=== PATIENT | male | born 1975 | race Two or more races ===

== ENCOUNTER 2017-08-19 22:14 | Emergency (ER) | payer OTHER ==
[~2017-08-19] VITALS: Ht 177.8 cm; Wt 101.6 kg
[~2017-08-19 22:14] MED LIST: CELE100C PO
[2017-08-19 22:15] VITALS: BP 117/71
[2017-08-19] MEDS ORDERED: FLUORESCEIN 1MG EYE STRIP. ONE (22:39)
[2017-08-19] MEDS ORDERED: prednisoLONE ACETATE 1% OPHTH SUSPENSION 5ML BOTTLE. ONE (22:58)
[2017-08-19] MEDS ORDERED: IBUPROFEN 800 MG TABLET. PO ONE (23:00)
[2017-08-19] MEDS ORDERED: diphenhydrAMINE HCL 25 MG CAPSULE PO ONE (23:00)
[2017-08-19] MEDS ORDERED: HYDROcodone/APAP 5/325MG 1 TAB TABLET PO ONE (23:00)
[2017-08-19] MEDS ORDERED: TETRACAINE 0.5% OPHTH SOLUTION 4ML BOTTLE. OU ONE (23:00)
[2017-08-19] MEDS ORDERED: HYDR-971 PO (23:06)
--- NOTE | 2017-08-19 23:06 | PHYS DOC ---
Past History Past Medical History: No Pertinent History Past Surgical History: No Surgical History Smoking: Non-smoker Alcohol Use: None Drug Use: None Adult General Chief Complaint Chief Complaint: EYE PROBLEMS HPI HPI Patient is a 41-year-old male presenting to the emergency department for evaluation of bilateral eye pain redness and tearing with slight blurriness that started yesterday. He says that he was outside for approximately 30 minutes and started developing severe pain in his eyes and it has progressed over the past day. He does not wear contact lenses or any corrective lenses. He denies having any medical problems and the only medication he takes is Celebrex. No fevers chills nausea vomiting or other systemic symptoms. Review of Systems Review of Systems Constitutional: Denies fever or chills [] Eyes: + change in visual acuity, redness, eye pain [] HENT: Positive rhinorrhea Integument: Erythematous rash to the bridge of his nose and his maxillary area All other systems were reviewed and found to be within normal limits, except as documented in this note. Current Medications Current Medications Current Medications Medications (Trade) Dose Ordered Sig/Tiny Start Time Stop Time Status Last Admin Dose Admin Acetaminophen/ Hydrocodone Bitart (Lortab 5/325) 2 tab 1X ONCE 08/19/17 23:00 08/19/17 23:01 DC 08/19/17 22:53 2 TAB Diphenhydramine HCl (Benadryl) 50 mg 1X ONCE 08/19/17 23:00 08/19/17 23:01 DC 08/19/17 22:54 50 MG Fluorescein Sodium (Ful-Tierney 1mg) 1 strip STK-MED ONCE 08/19/17 22:39 08/19/17 22:40 DC Ibuprofen (Motrin) 800 mg 1X ONCE 08/19/17 23:00 08/19/17 23:01 DC 08/19/17 22:53 800 MG Prednisolone Acetate (Pred Forte) 50 drop STK-MED ONCE 08/19/17 22:58 08/19/17 22:59 DC Tetracaine HCl (Tetracaine) 2 drop 1X ONCE 08/19/17 23:00 08/19/17 23:01 DC 08/19/17 22:46 2 DROP Allergies Allergies Allergies Coded Allergies Type Severity Reaction Last Updated Verified Iodinated Contrast Media - IV Dye Allergy Intermediate 02/27/15 Yes Physical Exam Physical Exam Constitutional: Well developed, well nourished, no acute distress, non-toxic appearance. [] HENT: Rhinorrhea noted Eyes: Bilateral eyes inflamed in the conjunctiva with right I appearing worse as it is more diffuse. Left eye is erythematous medially on the conjunctiva but lateral conjunctiva is normal white color. Pupils equal round reactive to light and he has intact movement in all directions however he has pain with extraocular movements. Pressure in right I measured 18,13 and 14 with pressure in left eye measuring 6,10 and 11. Floor seen exam did not reveal any obvious abrasions or uptake with negative Jami sign. Visual acuity was 20/50 in right left and bilateral eyes Skin: Erythematous rash to the bridge of his nose and his maxillary area Current Patient Data Vital Signs Vital Signs Date Time Temp Pulse Resp B/P (MAP) Pulse Ox O2 Delivery O2 Flow Rate FiO2 08/19/17 22:53 20 99 Room Air 08/19/17 22:15 97.5 59 EKG EKG [] Radiology/Procedures Radiology/Procedures [] Course & Med Decision Making Course & Med Decision Making Patient with clinical picture consistent with an episcleritis or scleritis in my opinion but given how severe her symptoms are I am hemorrhaging towards a scleritis. Differential diagnosis also includes uveitis and keratitis given he was outside however usually I do not see this much inflammation in the conjunctiva with a uveitis. I spoke to the hose handler Dr. Stevenson and relayed my exam and suspicions with him. Dr. Stevenson does not cover [facility] but he covers [place] and he said he would be willing to discuss the case with me and see him in follow-up. He stated given my concerns that he would recommend starting Pred Forte take 3 times a day in addition to 800 mg of ibuprofen 3 times a day. I gave him his first dose here. I told patient that is very important that he take the medications as prescribed and keep the follow -up with Dr. Stevenson tomorrow. Dr. Stevenson said that he would see patient any time during the day as long as the patient called and came into his office. Patient said that he would keep follow-up for tomorrow with the hose handler. I told him to come back for any concerns. Patient aware and agreeable with plan and verbalized understanding of the importance of ophthalmology follow-up in the strict ED return precautions discussed. Sascha Portilloimer Sascha Disclaimer This electronic medical record was generated, in whole or in part, using a voice recognition dictation system. Departure Departure: Impression: Primary Impression: Episcleritis of both eyes Disposition: 01 HOME, SELF-CARE Condition: STABLE Referrals: PCP,UNKNOWN (PCP) Patient Instructions: Eye - Scleritis and Episcleritis Additional Instructions: TAKE 800MG OF IBUPROFEN EVERY 6 HOURS. USE THE PRED-FORTE EYE DROPS EVERY 8 HOURS. MAKE SURE YOU SEE THE EYE DOCTOR TOMORROW WE TALKED ABOUT. COME BACK TO THE ED WITH WORSENING PAIN, OR OTHER GENERAL CONCERNS. THANK YOU! Scripts Hydrocodone Bit/Acetaminophen (NORCO 5-325 TABLET) 1 Each Tablet 1 TAB PO PRN Q6HRS Y for PAIN, #14 TAB 0 Refills Prov: LEESA GORDON DO 08/19/17 LEESA GORDON DO Aug 19, 2017 23:06
[2017-08-19] MEDS ORDERED: prednisoLONE ACETATE 1% OPHTH SUSPENSION 5ML BOTTLE. OU ONE (23:30)
== END 2017-08-19 23:16 | disposition home or self-care (01) ==
LOC: ER 22:14
DX: H15.103 Unspecified episcleritis, bilateral (principal); J34.89 Other specified disorders of nose and nasal sinuses; Z91.041 Radiographic dye allergy status
CPT/HCPCS: 99284; Q0163